=== PATIENT | male | born 1965 | race African-American/Black ===

== ENCOUNTER → 2021-07-19 11:04 | Outpatient (CLI) | payer OTHER, SELFPAY | PROVIDERS: PCP Internal Medicine; Visit Provider Family Medicine | DX: Z23 Encounter for immunization (principal) | CPT/HCPCS: 0004A; 91300 ==

== ENCOUNTER 2021-09-11 09:58 | Outpatient (CLI) | payer OTHER, SELFPAY ==
--- NOTE | 2021-09-11 10:10 | STE_ITS ---
Reason For Study: Dyspnea on exertion Stress Results Protocol: Bubba Protocol Maximum Predicted HR: 165 bpm Target HR: 140 bpm % Maximum Predicted HR: 95 % DurationHeart Rate Stage (mm:ss) (bpm) BP Comment Baseline 80 132/92Patient denies chest pain Stage 1 3:00 109 140/90Patient denies any chest pain or shortness of breath Stage 2 3:00 120 140/90Patient denies any chest pain or shortness of breath Stage 3 3:00 133 158/90Patient denies any chest pain. Mild shortness of breath Stage 4 2:59 157 160/92Patient denies any chest pain. Mild to moderate shortness of breath Recovery 94 128/80Patient denies any chest pain or shortness of breath Stress Duration: 11:59 mm:ss Maximum Stress HR: 157 bpm Baseline Echocardiogram Findings Stress Echo Wall motion Data Resting WM Intermediate WM Stress WM ECHO/Stress Test Echo w/o Contrast Interpretation Summary Exercise stress echo. 56-year-old male with a history of hypertension. Stress protocol: Resting EKG demonstrates normal sinus rhythm with a rate of 71 bpm normal inter vals are noted resting blood pressure is 132/92 mmHg.. The [facility] protocol for total duration of 12 minutes. The maximum heart rate attained 157 bpm which was 95% of maximum predicted heart rate the maximum workload was 13.4 metabolic equivalents. At re st there were no ST or T wave changes noted suggest ischemia and at peak exercise upsloping ST zamarripa ges were noted with did not meet the criteria for ischemia. No clinical angina was noted the test w as terminated due to target heart rate being achieved. The peak blood pressure was 160/92 mmHg with a rate-pressure product of 25,120. Stress echocardiographic imaging. The resting echocardiogram demonstrated an ej ection fraction of approximately 60%. No wall motion abnormalities were noted. The peak ejection f raction was noted to be 65 to 70% with no wall motion abnormalities noted to suggest ischemia. Conclusion: Normal exercise stress echo with no evidence of ischemia at a high workload. Excellent functional capacity. Ordering Physician: Pantera Bennett Referring Physician: Pantera Bennett Performed By: Porfirio Andrews RCS
== END 2021-09-11 23:59 | disposition home or self-care (01) ==
PROVIDERS: PCP Internal Medicine; Referring Provider Internal Medicine; Visit Provider Internal Medicine
DX: R06.00 Dyspnea, unspecified (principal)
CPT/HCPCS: 93017; 93350; Q9957; A4216